=== PATIENT | male | born 2000 | race Caucasian/White ===

== ENCOUNTER 2020-12-30 15:30 | Emergency (ER) | payer SELFPAY ==
[~2020-12-30] VITALS: Ht 175.3 cm; Wt 65.8 kg
[2020-12-30] MEDS ORDERED: AMOXICILLIN875 MG PO (15:57)
== END 2020-12-30 16:36 | disposition home or self-care (01) ==
LOC: FER 15:30
DX: K04.7 Periapical abscess without sinus (principal); K02.9 Dental caries, unspecified; F17.200 Nicotine dependence, unspecified, uncomplicated
CPT/HCPCS: 99282; Q0163